=== PATIENT | male | born 1980 | race Hispanic/Latino ===

== ENCOUNTER 2025-01-09 14:16 | Emergency (ER) | payer SELFPAY ==
[2025-01-09 14:19] VITALS: BP 124/88; PULSE 99; RESP 17; TEMP 36.5; O2SAT 100
[2025-01-09 14:40] LABS: Basophils Absolute Auto 0.1 K/mm3 (0.0-0.1); Basophils Percent Auto 1.2 % (0.2-1.2); Eosinophils Percent Auto 0.2 % (0-4.4); Hematocrit 40.1 % (42.0-52.0); Hemoglobin 13.7 g/dL (14.0-18.0); Immature Granulocyte Absolute 0.01 K/mm3 (0.00-0.031); Immature Granulocyte Percent A 0.2 % (0-0.5); Lymphocytes Absolute Auto 1.56 K/mm3 (0.9-3.2); Lymphocytes Percent Auto 32.4 % (18.3-44.2); Mean Corpuscular HGB Conc 34.2 g/dl (32-36); Mean Corpuscular Volume 99.5 fl (80-100); Monocytes Absolute Auto 0.4 K/mm3 (0.1-0.6); Monocytes Percent Auto 8.3 % (2.6-8.5); Neutrophils Absolute Auto 2.8 K/mm3 (1.3-6.7); Neutrophils Percent Auto 57.7 % (45.5-73.1); Platelet Count Result 205 k/mm3 (150-375); Red Blood Count 4.03 M/mm3 (4.6-6.20); Red Cell Distribution Width 12.7 % (11.5-14.5); White Blood Count 4.8 K/mm3 (4.5-10.0)
[2025-01-09 14:50] LABS: Alanine Aminotransferase 96 U/L (6-50); Albumin Level 3.1 g/dL (3.5-5.1); Alkaline Phosphatase 230 U/L (38-126); Anion Gap 10 mmol/L (4-12); Aspartate Amino Transferase 194 U/L (17-59); Bilirubin,Total 1.8 mg/dL (0.2-1.3); Blood Urea Nitrogen 12 mg/dL (9-20); Calcium 7.3 mg/dL (8.4-10.2); Carbon Dioxide 29 mmol/L (22-30); Chloride 103 mmol/L (98-107); Estimated CRCL calculation 71 ml/min; Estimated Glomerular Filt Rate > 60; Glucose 161 mg/dL (65-110); Lactic Acid Reflex 3.6 mmol/L (0.7-2.0); Potassium 3.9 mmol/L (3.4-5.0); Sodium 142 mmol/L (137-145)
[2025-01-09 14:51] LABS: INR 1.2; Prothrombin Time 15.9 Seconds (11.1-14.7)
[2025-01-09 14:52] LABS: Partial Thromboplastin Time 32.4 Seconds (22.3-36.8)
[2025-01-09 14:59] LABS: Ethanol 396 mg/dL (<10)
[2025-01-09 15:00] LABS: Lipase 358 U/L (23-300)
--- NOTE | 2025-01-09 15:07 | ED_ITS ---
HPI - General Adult General Chief complaint: Alcohol Stated complaint: ETOH History of Present Illness HPI narrative: 44-year-old male present to the emergency department for evaluation for possible seizure-like activity. Patient states he has been drinking at his home for the last 3-4 days. Neighbors called EMS because they thought the patient was having a seizure in his yd when EMS arrived patient was not postictal. Upon arrival to the emergency department patient denies any pain or complaint. Patient did not give explanation why he has been drinking so heavily. Patient denies any pain or injury. Patient is alert and appropriate. Related Data Home Medications ?Medication ?Instructions ?Recorded ?Confirmed ?Last Taken ?Type No Home Medications 01/09/25 01/09/25 Unknown History Allergies Allergy/AdvReac Type Severity Reaction Status Date / Time No Known Allergies Allergy Verified 01/09/25 14:27 Review of Systems 2 Review of Systems: All systems reviewed & are unremarkable except as noted in HPI and below Exam 2 Narrative: APPEARANCE: Well appearing, no pain, no distress, well-nourished. HEAD: normocephalic, atraumatic. EYES: PERRLA/EOMI, conjunctivae clear. NOSE: Normal no drainage EARS:TMS clear with good light reflex. THROAT: Pharynx clear, no exudate. NECK: Supple. No adenopathy, no masses. RESPIRATORY: Airway patent, respirations nonlabored. Clear to auscultation bilaterally, no rales, rhonchi, wheezing. CARDIOVASCULAR: Regular rate and rhythm without murmurs rubs or gallops. ABDOMINAL: Soft, nontender, nondistended, normal bowel sounds MUSCULOSKELETAL: Moves all extremities. Strength/ROM intact, No edema, No calf tenderness. NEURO: Alert. Cranial nerves II through XII intact. Good gait. Good coordination SKIN: Warm, dry. Normal Color Course Vital Signs Vital signs: Vital Signs Temperature 97.7 F 01/09/25 14:19 Pulse Rate 99 01/09/25 14:19 Respiratory Rate 17 01/09/25 14:19 Blood Pressure 124/88 01/09/25 14:19 Pulse Oximetry 100 01/09/25 14:19 Temperature 97.7 F 01/09/25 14:19 Pulse Rate 96 01/09/25 20:46 Respiratory Rate 15 01/09/25 20:46 Blood Pressure 103/76 01/09/25 20:46 Pulse Oximetry 97 05/11/25 20:46 Medical Decision Making Vital Signs Vital Signs: Vital Signs Temperature 97.7 F 01/09/25 14:19 Pulse Rate 99 01/09/25 14:19 Respiratory Rate 17 01/09/25 14:19 Blood Pressure 124/88 01/09/25 14:19 Pulse Oximetry 100 01/09/25 14:19 Temperature 97.7 F 01/09/25 14:19 Pulse Rate 96 01/09/25 20:46 Respiratory Rate 15 01/09/25 20:46 Blood Pressure 103/76 01/09/25 20:46 Pulse Oximetry 97 01/09/25 20:46 Lab Data 01/09/25 14:34 01/09/25 14:34 Labs: Lab Results 01/09/25 01/09/25 01/09/25 Range/Units 14:34 15:19 17:13 WBC 4.8 (4.5-10.0) K/mm3 RBC 4.03 L (4.6-6.20) M/mm3 Hgb 13.7 L (14.0-18.0) g/dL Hct 40.1 L (42.0-52.0) % MCV 99.5 (80-100) fl MCH 34.0 (26-34) pg MCHC 34.2 (32-36) g/dl RDW 12.7 (11.5-14.5) % Plt Count 205 (150-375) k/mm3 MPV 10.0 (7.4-10.4) fl Immature Gran % (Auto) 0.2 (0-0.5) % Neut % (Auto) 57.7 (45.5-73.1) % Lymph % (Auto) 32.4 (18.3-44.2) % Fisher % (Auto) 8.3 (2.6-8.5) % Eos % (Auto) 0.2 (0-4.4) % Baso % (Auto) 1.2 (0.2-1.2) % Lymph # (Auto) 1.56 (0.9-3.2) K/mm3 Fisher # (Auto) 0.4 (0.1-0.6) K/mm3 Eos # (Auto) 0.0 (0-0.3) K/mm3 Baso # (Auto) 0.1 (0.0-0.1) K/mm3 Abs Immat Gran (auto) 0.01 (0.00-0.031) K/mm3 Absolute Neuts (auto) 2.8 (1.3-6.7) K/mm3 Absolute Nucleated RBC 0.000 (0.0-0.012) K/mm3 Nucleated RBC % 0.0 (0.0-0.2) % PT 15.9 H (11.1-14.7) Seconds INR 1.2 APTT 32.4 (22.3-36.8) Seconds Sodium 142 (137-145) mmol/L Potassium 3.9 (3.4-5.0) mmol/L Chloride 103 (98-107) mmol/L Carbon Dioxide 29 (22-30) mmol/L Anion Gap 10 (4-12) mmol/L BUN 12 (9-20) mg/dL Creatinine 0.90 (0.7-1.3) mg/dL Estim Creat Clear Calc 71 ml/min Estimated GFR > 60 (59 - ) Glucose 161 H (65-110) mg/dL Lactic Acid 3.6 H 3.2 H (0.7-2.0) mmol/L Calcium 7.3 L (8.4-10.2) mg/dL Total Bilirubin 1.8 H (0.2-1.3) mg/dL AST 194 H (17-59) U/L ALT 96 H (6-50) U/L Alkaline Phosphatase 230 H (38-126) U/L Total Protein 7.0 (6.3-8.2) g/dL Albumin 3.1 L (3.5-5.1) g/dL Lipase 358 H (23-300) U/L Urine Color Yellow (Yellow) Urine Appearance Clear (Clear) Urine pH 7.0 (5.0-9.0) Ur Specific [place] 1.006 (1.001-1.035) Urine Protein Negative (Negative) mg/dL Urine Glucose (UA) Negative (Negative) mg/dL Urine Ketones Negative (Negative) mg/dL Ur Blood (Man) Negative (Negative) Urine Nitrate Negative (Negative) Urine Bilirubin Negative (Negative) Urine Urobilinogen 1.0 (<2.0) mg/dL Leukocyte Esterase Rfl Negative (Negative) JEFFERY/UL Ethyl Alcohol 396 H* (<10) mg/dL Discharge Plan Discharge Clinical Impression: Alcoholic intoxication Patient Disposition: Home Condition: Stable Instructions: Antibiotic Form, Abuse of Alcohol (ED) Additional Instructions: Have close follow-up with your primary care physician. Drink less alcohol. Patient Language: Chinese Prescriptions: No Action No Home Medications Follow-up/Referrals: PHYSICIAN,CHEMICAL DEPENDENCY THERAPIST [Primary Care Provider] -
[2025-01-09] MEDS: LACTATED RINGERS 1,000 ML 999 ML IV CONT ×2 (15:19→17:47)
[2025-01-09] MEDS: THIAMINE HCL 200 MG/2 ML VIAL 100 MG IV PUSH (15:19)
[2025-01-09 15:23] VITALS: BP 123/56; PULSE 94; RESP 17; O2SAT 97
[2025-01-09 15:25] LABS: Add Urine Microscopic? NO; Appearance Urine Clear (Clear); Bilirubin Urine Negative (Negative); Blood Urine Negative (Negative); Color Urine Yellow (Yellow); Glucose Urine UA Negative (Negative); Ketones Urine Negative (Negative); Leukocyte Esterase Ur Negative LEU/UL (Negative); Nitrate Urine Negative (Negative); Protein Urine Negative (Negative); Specific Grav Ur 1.006 (1.001-1.035)
[2025-01-09 16:06] VITALS: BP 117/86; PULSE 88; RESP 18; O2SAT 100
[2025-01-09 16:37] LABS: Reflex Lactic Acid Yes or No Add Lactic
[2025-01-09 17:26] LABS: Lactic Acid 3.2 mmol/L (0.7-2.0)
[2025-01-09 18:18] VITALS: BP 103/69; PULSE 85; RESP 18; O2SAT 99
--- NOTE | 2025-01-09 18:28 | PC.NURSE ---
patient declines the CT scan again at this time.
[2025-01-09 20:46] VITALS: BP 103/76; PULSE 96; RESP 15; O2SAT 97
--- NOTE | 2025-01-09 20:47 | PC.NURSE ---
Pt asked with certified bench jeweler technician services if he will consent to getting his head CT. Pt continues to refuse the CT scan and states he would like to go home. Pt is A&Ox4 at this time. EDP made aware.
== END 2025-01-09 21:11 | disposition home or self-care (01) ==
PROVIDERS: Emergency Provider Emergency Medicine
DX: F10.129 Alcohol abuse with intoxication, unspecified (principal); Y90.8 Blood alcohol level of 240 mg/100 ml or more
CPT/HCPCS: 36415; 80053; 81003; 82077; 83605; 83690; 85025; 85610; 85730; 96361; 96374; 99284; J3411; J7120